=== PATIENT | female | born 1995 | race Caucasian/White ===

== ENCOUNTER 2023-11-21 07:47 | Outpatient (CLI) | payer OTHER | END 2023-11-21 20:00 | disposition home or self-care (01) | LOC: SMI 07:47 | PROVIDERS: ATTEND Family Medicine | DX: Z12.31 Encounter for screening mammogram for malignant neoplasm of breast (principal); N60.02 Solitary cyst of left breast | CPT/HCPCS: 77067 ==

== ENCOUNTER 2023-11-29 08:55 | Outpatient (CLI) | payer OTHER | END 2023-11-29 18:25 | disposition home or self-care (01) | LOC: SUS 08:55 | PROVIDERS: ATTEND Family Medicine | DX: N60.02 Solitary cyst of left breast (principal); N63.20 Unspecified lump in the left breast, unspecified quadrant; N64.52 Nipple discharge; R92.30 Dense breasts, unspecified; M26.609 Unspecified temporomandibular joint disorder, unspecified side; Q83.1 Accessory breast | CPT/HCPCS: 70336; 70540; 70551; 76641 ==